=== PATIENT | male | born 1970 | race Caucasian/White ===

== ENCOUNTER 2016-07-05 21:17 | Inpatient (IN) | payer OTHER ==
[~2016-07-05] VITALS: Ht 185.4 cm; Wt 81.8 kg
[2016-07-05 21:39] LABS: EOSINOPHIL (%) 0.5 % (0-5); EOSINOPHIL COUNT 0.1 K/uL (0-0.3); HEMATOCRIT 40.8 % (38.0-50.0); IMMATURE GRANULOCYTE (%) 0.2 % (0.0-0.7); IMMATURE GRANULOCYTE COUNT 0.2 K/uL; LYMPHOCYTE COUNT 3.5 K/uL (1.0-2.8); MCH 31.8 PG (29.0-34.0); MCHC 34.8 G/DL (30.0-36.0); MCV 91.3 FL (86-99); MEAN PLAT.VOLUME 9.3 uM^3 (9.0-12.4); MONOCYTE (%) 7.7 % (3-12); NEUTROPHIL (%) 63.8 % (45-76); NEUTROPHIL COUNT 8.2 K/uL (1.8-6.4); PLATELET COUNT 298 K/uL (156-360); RBC DIS.WIDTH-CV 12.8 % (11.8-14.6); RED BLOOD COUNT 4.47 M/uL (4.00-5.50); WHITE BLOOD COUNT 12.8 K/uL (4.1-10.2)
[2016-07-05 21:50] LABS: CHLORIDE 103 mEq/L (99-109); POTASSIUM 3.5 mEq/L (3.7-5.4); SODIUM 138 mEq/L (136-147)
[2016-07-05 21:51] LABS: MAGNESIUM 2.4 mg/dL (1.3-2.7)
[2016-07-05 21:52] LABS: GLUCOSE 108 mg/dL (70-99)
[2016-07-05 21:54] LABS: ANION GAP 12 MEQ/L (2-14)
[2016-07-05 21:56] LABS: GFR ESTIMATE (CALCULATED) > 59 mL/min/; PTT 24.3 (25-32)
[2016-07-05 21:57] LABS: UREA NITROGEN (BUN) 8 mg/dL (9-23)
[2016-07-05 22:04] LABS: TROP-I INTERPRETATION NEGATIVE; TROPONIN-I < 0.01 ng/mL (0.0-0.30)
[2016-07-05] MEDS ORDERED: CYCLOBENZAPRINE10 MG PO (22:54)
[2016-07-05] MEDS ORDERED: CLOPIDOGREL75 MG PO (22:54)
[2016-07-05] MEDS ORDERED: SERTRALINE HCL100 MG PO (22:54)
[2016-07-05] MEDS ORDERED: ATORVASTATIN CA20 MG PO (22:55)
[2016-07-05] MEDS ORDERED: WELLBUTRIN XL150 MG PO (22:55)
[2016-07-05] MEDS ORDERED: LORAZEPAM0.5 MG PO (22:55)
[2016-07-05 23:06] LABS: ADD MIUA? NO; BILIRUBIN NEGATIVE; BLOOD NEGATIVE; COLOR YELLOW ((YELLOW)); GLUCOSE (STRIP) 100; KETONES NEGATIVE; LEUKOCYTES NEGATIVE; NITRITE NEGATIVE; PROTEIN (STRIP) NEGATIVE; SPECIFIC GRAVITY 1.015 (1.000-1.030); UCUL ADDED? NO; UROBILINOGEN 0.2 MG/DL (0.2-1.0)
[2016-07-05 23:29] LABS: COCAINE NEGATIVE (150 ng/mL); METHAMPHETAMINE NEGATIVE (500 ng/mL); PHENCYCLIDINE NEGATIVE (25 ng/mL); THC CANNABINOIDS NEGATIVE (50 ng/mL)
[2016-07-05 23:30] LABS: AMPHETAMINE NEGATIVE (500 ng/mL); BARBITURATES NEGATIVE (200 ng/mL); BENZODIAZEPINES NEGATIVE (150 ng/mL); INTERNAL CONTROLS VALID? YES; METHADONE NEGATIVE (200 ng/mL); OPIATES (MORPHINE) NEGATIVE (100 ng/mL); OXYCODONE NEGATIVE (100 ng/mL); PROPOXYPHENE NEGATIVE (300 ng/mL); TRICYCLIC ANTIDEPRESSANTS NEGATIVE (300 ng/mL)
[2016-07-06 16:51] VITALS: BP 138/75
[2016-07-06 18:24] VITALS: BP 140/78
[2016-07-06 20:07] VITALS: BP 129/69
[2016-07-07] VITALS: BP 122/67
[2016-07-07 04:00] VITALS: BP 114/65
[2016-07-07 11:29] VITALS: BP 117/72
[2016-07-07 15:42] VITALS: BP 117/67
[2016-07-07 19:36] VITALS: BP 134/60
[2016-07-08] VITALS: BP 110/63
[2016-07-08 04:00] VITALS: BP 112/62
[2016-07-08 07:27] LABS: ANION GAP 7 MEQ/L (2-14); CHLORIDE 105 MEQ/L (99-109); GFR ESTIMATE (CALCULATED) > 59 mL/min/; GLUCOSE 101 mg/dL (70-99); SAMPLE HEMOLYSIS CHECK 0; SAMPLE ICTERIC CHECK 0; SAMPLE LIPEMIA CHECK 0; SODIUM 140 MEQ/L (136-147); UREA NITROGEN (BUN) 15 mg/dL (9-23)
[2016-07-08 07:35] VITALS: BP 115/67
[2016-07-08 07:52] LABS: BASOPHIL COUNT 0.1 K/uL (0-0.1); EOSINOPHIL (%) 3.7 % (0-5); EOSINOPHIL COUNT 0.3 K/uL (0-0.3); IMMATURE GRANULOCYTE (%) 0.3 % (0.0-0.7); LYMPHOCYTE COUNT 3.5 K/uL (1.0-2.8); MCH 30.9 PG (29.0-34.0); MCHC 32.6 G/DL (30.0-36.0); MCV 94.6 FL (86-99); MEAN PLAT.VOLUME 9.7 uM^3 (9.0-12.4); MONOCYTE (%) 9.5 % (3-12); MONOCYTE COUNT 0.8 K/uL (0-0.8); NEUTROPHIL (%) 41.6 % (45-76); NEUTROPHIL COUNT 3.3 K/uL (1.8-6.4); PLATELET COUNT 273 K/uL (156-360); RBC DIS.WIDTH-CV 13.3 % (11.8-14.6); RBC DIS.WIDTH-SD 46.4 % (39-53); RED BLOOD COUNT 4.44 M/uL (4.00-5.50)
[2016-07-08 08:04] LABS: WHITE BLOOD COUNT 7.9 K/uL (4.1-10.2)
[2016-07-08 12:22] VITALS: BP 111/75
[2016-07-08] MEDS ORDERED: KEPPRA500 MG PO (13:17)
== END 2016-07-08 14:24 | disposition home or self-care (01) | DRG 101 ==
LOC: EME 21:17 → EDOF 23:05 → 5SOUTH 23:05 → 3EAST 07-06 16:12 → 5SOUTH 07-06 17:46
PROVIDERS: Emergency Medicine; Family Medicine
DX: R56.9 Unspecified convulsions (principal); I69.351 Hemiplegia and hemiparesis following cerebral infarction affecting right dominant side; F32.9 Major depressive disorder, single episode, unspecified; F41.9 Anxiety disorder, unspecified; G93.89 Other specified disorders of brain; Z88.0 Allergy status to penicillin; E04.1 Nontoxic single thyroid nodule; Z88.6 Allergy status to analgesic agent; E78.5 Hyperlipidemia, unspecified; G89.29 Other chronic pain; M54.9 Dorsalgia, unspecified
CPT/HCPCS: 70450; 70551; 71010; 80048; 81003; 83735; 84484; 85025; 85610; 85730; 93005; 93880; 95819; 99281; 99284; J1650; J1953; J2060; J7030; J7050

== ENCOUNTER 2017-01-28 22:30 | Emergency (ER) | payer OTHER ==
[~2017-01-28] VITALS: Ht 185.4 cm; Wt 73.1 kg
[~2017-01-28 22:30] MED LIST: ATORVASTATIN CA20 MG PO; CLOPIDOGREL75 MG PO; CYCLOBENZAPRINE10 MG PO; KEPPRA500 MG PO; LORAZEPAM0.5 MG PO; SERTRALINE HCL100 MG PO; WELLBUTRIN XL150 MG PO
[2017-01-28 23:23] LABS: HEMATOCRIT 42.3 % (38.0-50.0); MCH 30.5 PG (29.0-34.0); MCHC 33.8 G/DL (30.0-36.0); MCV 90.2 FL (86-99); MEAN PLAT.VOLUME 9.3 uM^3 (9.0-12.4); PLATELET COUNT 236 K/uL (156-360); RBC DIS.WIDTH-SD 39.9 % (39-53); RED BLOOD COUNT 4.69 M/uL (4.00-5.50); WHITE BLOOD COUNT 8.4 K/uL (4.1-10.2)
[2017-01-28 23:36] LABS: CHLORIDE 104 mEq/L (99-109); POTASSIUM 3.6 mEq/L (3.7-5.4); SODIUM 139 mEq/L (136-147)
[2017-01-28 23:38] LABS: GLUCOSE 97 mg/dL (70-99)
[2017-01-28 23:39] LABS: ANION GAP 9 MEQ/L (2-14)
[2017-01-28 23:41] LABS: GFR ESTIMATE (CALCULATED) > 59 mL/min/; SERUM ETHYL ALCOHOL < 10 mg/dL
[2017-01-28 23:42] LABS: UREA NITROGEN (BUN) 9 mg/dL (9-23)
[2017-01-28 23:43] LABS: TROP-I INTERPRETATION NEGATIVE; TROPONIN-I < 0.01 ng/mL (0.0-0.30)
[2017-01-28 23:44] LABS: CREATINE KINASE 83 IU/L (1-294); TOTAL CK 83 IU/L (1-294)
[2017-01-28 23:51] LABS: CK-MB 0.4 ng/mL (0.0-4.9)
[2017-01-29 02:23] LABS: ADD MEDTOX COMMENT Y; AMPHETAMINE NEGATIVE (500 ng/mL); BARBITURATES NEGATIVE (200 ng/mL); BENZODIAZEPINES PRESUMPTIVE POSITIVE (150 ng/mL); COCAINE PRESUMPTIVE POSITIVE (150 ng/mL); INTERNAL CONTROLS VALID? YES; METHADONE NEGATIVE (200 ng/mL); METHAMPHETAMINE PRESUMPTIVE POSITIVE (500 ng/mL); OPIATES (MORPHINE) NEGATIVE (100 ng/mL); OXYCODONE NEGATIVE (100 ng/mL); PHENCYCLIDINE NEGATIVE (25 ng/mL); PROPOXYPHENE NEGATIVE (300 ng/mL); THC CANNABINOIDS NEGATIVE (50 ng/mL); TRICYCLIC ANTIDEPRESSANTS PRESUMPTIVE POSITIVE (300 ng/mL)
[2017-01-29 02:52] LABS: BENZODIAZEPINES QUANT VALUE 0 NG/ML; BENZODIAZEPINES, URINE SCREEN Negative (200 ng/mL)
[2017-01-29 06:47] VITALS: BP 105/75
== END 2017-01-29 06:51 | disposition home or self-care (01) ==
LOC: EME 22:30
PROVIDERS: Emergency Medicine
DX: F15.10 Other stimulant abuse, uncomplicated (principal); F19.10 Other psychoactive substance abuse, uncomplicated; F14.10 Cocaine abuse, uncomplicated; F32.9 Major depressive disorder, single episode, unspecified; R56.9 Unspecified convulsions; F31.9 Bipolar disorder, unspecified; F17.200 Nicotine dependence, unspecified, uncomplicated; Z86.73 Personal history of transient ischemic attack (TIA), and cerebral infarction without residual deficits
CPT/HCPCS: 80048; 82550; 82553; 83880; 84484; 84999; 85027; 90839; 93005; 99281; 99285; G0480; J7030

== ENCOUNTER 2017-03-22 17:54 | Inpatient (IN) | payer OTHER ==
[~2017-03-22] VITALS: Ht 185.4 cm; Wt 76.1 kg
[2017-03-22 18:50] LABS: HEMATOCRIT 35.4 % (38.0-50.0); MCH 31.4 PG (29.0-34.0); MCHC 33.9 G/DL (30.0-36.0); MCV 92.7 FL (86-99); MEAN PLAT.VOLUME 8.6 uM^3 (9.0-12.4); PLATELET COUNT 189 K/uL (156-360); RBC DIS.WIDTH-CV 12.4 % (11.8-14.6); RBC DIS.WIDTH-SD 42.5 % (39-53); RED BLOOD COUNT 3.82 M/uL (4.00-5.50); WHITE BLOOD COUNT 8.4 K/uL (4.1-10.2)
[2017-03-22 18:52] LABS: CARBON DIOXIDE (BICARBONATE) 30.3 MEQ/L (20-31)
[2017-03-22 18:57] LABS: PROTHROMBIN TIME 10.6 SEC (10.2-12.9)
[2017-03-22 18:59] LABS: CHLORIDE 109 mEq/L (99-109); POTASSIUM 3.3 mEq/L (3.7-5.4); SODIUM 141 mEq/L (136-147)
[2017-03-22 19:00] LABS: PTT 27.7 SEC (25-37)
[2017-03-22 19:01] LABS: CHLORIDE 111 mEq/L (99-109); GLUCOSE 81 mg/dL (70-99); POTASSIUM 3.3 mEq/L (3.7-5.4); SODIUM 142 mEq/L (136-147)
[2017-03-22 19:02] LABS: ANION GAP 8 MEQ/L (2-14); GLUCOSE 79 mg/dL (70-99)
[2017-03-22 19:03] LABS: TOTAL BILIRUBIN 0.3 mg/dL (0.0-1.0)
[2017-03-22 19:04] LABS: ALKALINE PHOSPHATASE 58 IU/L (3-129); ANION GAP 6 MEQ/L (2-14)
[2017-03-22 19:05] LABS: GFR ESTIMATE (CALCULATED) > 59 mL/min/
[2017-03-22 19:06] LABS: GFR ESTIMATE (CALCULATED) > 59 mL/min/; SERUM ETHYL ALCOHOL < 10 mg/dL; UREA NITROGEN (BUN) 10 mg/dL (9-23)
[2017-03-22 19:08] LABS: UREA NITROGEN (BUN) 11 mg/dL (9-23)
[2017-03-22 19:09] LABS: SALICYLATE < 5.0 MG/DL (15-30)
[2017-03-22 19:35] LABS: AMPHETAMINE NEGATIVE (500 ng/mL); BARBITURATES NEGATIVE (200 ng/mL); BENZODIAZEPINES PRESUMPTIVE POSITIVE (150 ng/mL); COCAINE PRESUMPTIVE POSITIVE (150 ng/mL); INTERNAL CONTROLS VALID? YES; METHADONE NEGATIVE (200 ng/mL); METHAMPHETAMINE NEGATIVE (500 ng/mL); OPIATES (MORPHINE) PRESUMPTIVE POSITIVE (100 ng/mL); OXYCODONE NEGATIVE (100 ng/mL); PHENCYCLIDINE NEGATIVE (25 ng/mL); PROPOXYPHENE NEGATIVE (300 ng/mL); THC CANNABINOIDS NEGATIVE (50 ng/mL); TRICYCLIC ANTIDEPRESSANTS PRESUMPTIVE POSITIVE (300 ng/mL)
[2017-03-22 19:36] LABS: ADD MEDTOX COMMENT Y
[2017-03-22 20:12] LABS: BENZODIAZEPINES QUANT VALUE 0 NG/ML; BENZODIAZEPINES, URINE SCREEN Negative (200 ng/mL)
[2017-03-22] MEDS ORDERED: TRAZODONE HCL50 MG PO (20:23)
[2017-03-22] MEDS ORDERED: LEVETIRACETAM1000 MG PO (20:24)
[2017-03-22] MEDS ORDERED: AMITRIPTYLINE H25 MG PO (20:26)
[2017-03-22] MEDS ORDERED: LORAZEPAM1 MG PO (20:27)
[2017-03-22 20:31] LABS: BASE EXCESS 1.3 mEq/L (-3 to +3); BICARBONATE 27.2 mEq/L (22-26); CARBOXY HGB 4.2 % (0-5); METHEMOGLOBIN 1.1 % (0-1.5); PCO2 47 mm Hg (35-45); PO2 233 mm Hg (80-100); pH 7.37 (7.35-7.45)
[2017-03-22 20:32] LABS: COMMENTS - BLOOD GASES A+C+; DEVICE VENT; FI02 100 %; MECHANICAL RATE 16 resp/min; MODE AC; SITE RR; TOTAL RESP RATE 16 resp/min
[2017-03-22 20:33] LABS: PEEP 5 CM/H20; TIDAL VOLUME 550 ML
[2017-03-22 23:30] VITALS: BP 175/98
[2017-03-22 23:38] LABS: ADD MIUA? YES; BILIRUBIN NEGATIVE; BLOOD NEGATIVE; COLOR AMBER ((YELLOW)); GLUCOSE (STRIP) 50; KETONES NEGATIVE; LEUKOCYTES NEGATIVE; NITRITE NEGATIVE; PROTEIN (STRIP) NEGATIVE; SPECIFIC GRAVITY 1.023 (1.000-1.030); UROBILINOGEN 0.2 MG/DL (0.2-1.0)
[2017-03-22 23:46] VITALS: BP 175/98
[2017-03-22 23:51] LABS: BACTERIA NONE SEEN /HPF; EPITHELIAL CELLS NONE SEEN /HPF; MUCUS TRACE /LPF; RED BLOOD CELLS 0-5 /HPF (0-5); UCUL ADDED? NO; WHITE BLOOD CELLS 0-5 /HPF (0-5)
[2017-03-23] VITALS (18 sets, daily range): BP systolic 104–166; BP diastolic 63–89
[2017-03-23 00:54] LABS: METH RESISTANT S AUREUS PCR NEGATIVE (NEGATIVE)
[2017-03-23 01:02] LABS: PROBE CHECK PASS; SPECIMEN PROCESSING CONTROL PASS
[2017-03-23 08:44] LABS: BASOPHIL COUNT 0.1 K/uL (0-0.1); EOSINOPHIL (%) 0.9 % (0-5); EOSINOPHIL COUNT 0.1 K/uL (0-0.3); HEMATOCRIT 39.2 % (38.0-50.0); IMMATURE GRANULOCYTE (%) 0.6 % (0.0-0.7); IMMATURE GRANULOCYTE COUNT 0.1 K/uL; INSTRUMENT ABS NEUTROPHIL CT 8.3 K/uL; LYMPHOCYTE COUNT 2.3 K/uL (1.0-2.8); MCH 31.6 PG (29.0-34.0); MCHC 33.9 G/DL (30.0-36.0); MCV 93.1 FL (86-99); MEAN PLAT.VOLUME 9.1 uM^3 (9.0-12.4); MONOCYTE (%) 5.9 % (3-12); MONOCYTE COUNT 0.7 K/uL (0-0.8); NEUTROPHIL (%) 72.2 % (45-76); NEUTROPHIL COUNT 8.3 K/uL (1.8-6.4); PLATELET COUNT 196 K/uL (156-360); RBC DIS.WIDTH-CV 12.6 % (11.8-14.6); RBC DIS.WIDTH-SD 42.6 % (39-53); RED BLOOD COUNT 4.21 M/uL (4.00-5.50); WHITE BLOOD COUNT 11.5 K/uL (4.1-10.2)
[2017-03-23 09:16] LABS: ANION GAP 6 MEQ/L (2-14); CHLORIDE 106 MEQ/L (99-109); GFR ESTIMATE (CALCULATED) > 59 mL/min/; GLUCOSE 98 mg/dL (70-99); MAGNESIUM 1.8 mg/dl (1.3-2.7); SAMPLE HEMOLYSIS CHECK 0; SAMPLE ICTERIC CHECK 0; SAMPLE LIPEMIA CHECK 0; SODIUM 140 MEQ/L (136-147); UREA NITROGEN (BUN) 7 mg/dL (9-23)
[2017-03-23 09:21] LABS: POTASSIUM 4.2 MEQ/L (3.7-5.4)
[2017-03-23] MEDS ORDERED: LEVETIRACETAM1000 MG PO (15:30)
[2017-03-24] VITALS (16 sets, daily range): BP systolic 99–135; BP diastolic 60–78
[2017-03-24 05:34] LABS: EOSINOPHIL (%) 0.8 % (0-5); EOSINOPHIL COUNT 0.1 K/uL (0-0.3); HEMATOCRIT 37.4 % (38.0-50.0); IMMATURE GRANULOCYTE (%) 0.6 % (0.0-0.7); IMMATURE GRANULOCYTE COUNT 0.1 K/uL; INSTRUMENT ABS NEUTROPHIL CT 8.9 K/uL; MCH 31.8 PG (29.0-34.0); MCHC 34.2 G/DL (30.0-36.0); MCV 92.8 FL (86-99); MEAN PLAT.VOLUME 9.4 uM^3 (9.0-12.4); MONOCYTE (%) 6.3 % (3-12); MONOCYTE COUNT 0.8 K/uL (0-0.8); NEUTROPHIL (%) 74.9 % (45-76); NEUTROPHIL COUNT 8.9 K/uL (1.8-6.4); PLATELET COUNT 203 K/uL (156-360); RBC DIS.WIDTH-CV 12.7 % (11.8-14.6); RBC DIS.WIDTH-SD 43.7 % (39-53); RED BLOOD COUNT 4.03 M/uL (4.00-5.50); WHITE BLOOD COUNT 11.8 K/uL (4.1-10.2)
[2017-03-24 05:58] LABS: ALKALINE PHOSPHATASE 68 IU/L (3-129); ANION GAP 8 MEQ/L (2-14); CHLORIDE 105 MEQ/L (99-109); GFR ESTIMATE (CALCULATED) > 59 mL/min/; GLUCOSE 115 mg/dL (70-99); MAGNESIUM 1.9 mg/dl (1.3-2.7); POTASSIUM 4.2 MEQ/L (3.7-5.4); SAMPLE HEMOLYSIS CHECK 0; SAMPLE ICTERIC CHECK 0; SAMPLE LIPEMIA CHECK 0; SODIUM 139 MEQ/L (136-147); UREA NITROGEN (BUN) 6 mg/dL (9-23)
[2017-03-24] MEDS ORDERED: FLUOXETINE HCL40 MG PO (07:29)
[2017-03-24] MEDS ORDERED: ACETAMINOPHEN-1 EAC1 PO (07:29)
[2017-03-24] MEDS ORDERED: LORAZEPAM1 MG PO (07:33)
[2017-03-24] MEDS ORDERED: AMITRIPTYLINE H25 MG PO (07:33)
[2017-03-24] MEDS ORDERED: ATORVASTATIN CA20 MG PO (07:34)
[2017-03-24] MEDS ORDERED: CLOPIDOGREL75 MG PO (07:34)
[2017-03-25 08:33] VITALS: BP 117/68
[2017-03-25 10:58] LABS: BASOPHIL COUNT 0.1 K/uL (0-0.1); EOSINOPHIL COUNT 0.2 K/uL (0-0.3); HEMATOCRIT 38.6 % (38.0-50.0); IMMATURE GRANULOCYTE (%) 0.3 % (0.0-0.7); INSTRUMENT ABS NEUTROPHIL CT 7.6 K/uL; LYMPHOCYTE COUNT 2.2 K/uL (1.0-2.8); MCH 31.3 PG (29.0-34.0); MCHC 33.9 G/DL (30.0-36.0); MCV 92.3 FL (86-99); MEAN PLAT.VOLUME 8.9 uM^3 (9.0-12.4); MONOCYTE (%) 7.1 % (3-12); MONOCYTE COUNT 0.8 K/uL (0-0.8); NEUTROPHIL (%) 70.2 % (45-76); NEUTROPHIL COUNT 7.6 K/uL (1.8-6.4); PLATELET COUNT 208 K/uL (156-360); RBC DIS.WIDTH-CV 12.5 % (11.8-14.6); RBC DIS.WIDTH-SD 42.7 % (39-53); RED BLOOD COUNT 4.18 M/uL (4.00-5.50); WHITE BLOOD COUNT 10.8 K/uL (4.1-10.2)
== END 2017-03-25 15:23 | disposition home or self-care (01) | DRG 917 ==
LOC: EME 17:54 → 4WEST 19:39 → EDOF 19:39 → ENRESERV 19:43 → 4WEST 23:15 → ENRESERV 03-24 12:53 → 3EAST 03-24 17:26
PROVIDERS: Emergency Medicine; Hospitalist; Internal Medicine Critical Care Medicine; Specialist
PROC: 5A1945Z Respiratory Ventilation, 24-96 Consecutive Hours (ICD-10-PCS; principal; 2017-03-22)
PROC: 0BH17EZ Insertion of Endotracheal Airway into Trachea, Via Natural or Artificial Opening (ICD-10-PCS; 2017-03-22)
DX: T42.4X2A Poisoning by benzodiazepines, intentional self-harm, initial encounter (principal); J96.00 Acute respiratory failure, unspecified whether with hypoxia or hypercapnia; F33.2 Major depressive disorder, recurrent severe without psychotic features; F11.20 Opioid dependence, uncomplicated; F17.210 Nicotine dependence, cigarettes, uncomplicated; F41.9 Anxiety disorder, unspecified; F43.25 Adjustment disorder with mixed disturbance of emotions and conduct; F14.10 Cocaine abuse, uncomplicated; Z86.73 Personal history of transient ischemic attack (TIA), and cerebral infarction without residual deficits; G40.909 Epilepsy, unspecified, not intractable, without status epilepticus; Z88.0 Allergy status to penicillin; Z88.5 Allergy status to narcotic agent
CPT/HCPCS: 36600; 71010; 80048; 80053; 81003; 82803; 83605; 83735; 84100; 84132; 84999; 85025; 85027; 85610; 85730; 87070; 87205; 87641; 93005; 94002; 94003; 99281; 99285; G0480; J1650; J2704; J3411; J3475; J7030; S0028

== ENCOUNTER 2017-10-29 16:21 | Emergency (ER) | payer OTHER ==
[~2017-10-29] VITALS: Ht 185.4 cm; Wt 79.1 kg
[~2017-10-29 16:21] MED LIST changes: +ACETAMINOPHEN-1 EAC1 PO; +AMITRIPTYLINE H25 MG PO; +FLUOXETINE HCL40 MG PO; +LEVETIRACETAM1000 MG PO; +LORAZEPAM1 MG PO; +TRAZODONE HCL50 MG PO
[2017-10-29 17:36] LABS: BASOPHIL (%) 0.7 % (0-1); BASOPHIL COUNT 0.1 K/uL (0-0.1); EOSINOPHIL (%) 3.3 % (0-5); EOSINOPHIL COUNT 0.3 K/uL (0-0.3); HEMATOCRIT 43.1 % (38.0-50.0); HEMOGLOBIN 14.4 G/DL (12.5-16.6); IMMATURE GRANULOCYTE (%) 0.6 % (0.0-0.7); LYMPHOCYTE (%) 37.8 % (15-42); LYMPHOCYTE COUNT 3.4 K/uL (1.0-2.8); MCH 30.4 PG (29.0-34.0); MCHC 33.4 G/DL (30.0-36.0); MCV 90.9 FL (86-99); MONOCYTE (%) 7.7 % (3-12); MONOCYTE COUNT 0.7 K/uL (0-0.8); NEUTROPHIL (%) 49.9 % (45-76); NEUTROPHIL COUNT 4.5 K/uL (1.8-6.4); PLATELET COUNT 314 K/uL (156-360); RBC DIS.WIDTH-CV 12.7 % (11.8-14.6); RBC DIS.WIDTH-SD 41.6 % (39-53); RED BLOOD COUNT 4.74 M/uL (4.00-5.50)
[2017-10-29 17:47] LABS: ALBUMIN 4.3 g/dL (3.2-4.8); CHLORIDE 106 mEq/L (99-109); POTASSIUM 3.7 mEq/L (3.7-5.4); SODIUM 143 mEq/L (136-147)
[2017-10-29 17:48] LABS: MAGNESIUM 2.5 mg/dL (1.3-2.7)
[2017-10-29 17:49] LABS: GLUCOSE 88 mg/dL (70-99)
[2017-10-29 17:51] LABS: TOTAL BILIRUBIN 0.4 mg/dL (0.0-1.0)
[2017-10-29 17:53] LABS: ALKALINE PHOSPHATASE 82 IU/L (3-129); CREATININE 0.9 mg/dL (0.6-1.3); GFR ESTIMATE (CALCULATED) > 59 mL/min/ (58.99-99999)
[2017-10-29 17:54] LABS: UREA NITROGEN (BUN) 9 mg/dL (9-23)
[2017-10-29 17:55] LABS: AST (GOT) 14 IU/L (2-34)
[2017-10-29 17:56] LABS: ALT (GPT) 11 IU/L (3-49); TROP-I INTERPRETATION NEGATIVE; TROPONIN-I < 0.01 ng/mL (0.0-0.30)
[2017-10-29 21:27] LABS: TROP-I INTERPRETATION NEGATIVE; TROPONIN-I < 0.01 ng/mL (0.0-0.30)
[2017-10-29 22:09] VITALS: BP 123/76
== END 2017-10-29 22:34 | disposition home or self-care (01) ==
LOC: EME 16:21
PROVIDERS: Emergency Medicine; Physician Assistant Medical
DX: F14.10 Cocaine abuse, uncomplicated (principal); E86.0 Dehydration; R56.9 Unspecified convulsions; F31.9 Bipolar disorder, unspecified; F41.9 Anxiety disorder, unspecified; F17.200 Nicotine dependence, unspecified, uncomplicated; Z79.02 Long term (current) use of antithrombotics/antiplatelets; Z86.73 Personal history of transient ischemic attack (TIA), and cerebral infarction without residual deficits; Z88.0 Allergy status to penicillin; Z88.5 Allergy status to narcotic agent; Z88.8 Allergy status to other drugs, medicaments and biological substances
CPT/HCPCS: 70450; 80053; 83735; 84484; 85025; 93005; 99281; 99285; J1200; J1885; J2765; J7040

== ENCOUNTER 2017-11-06 20:09 | Observation (INO) | payer OTHER ==
[~2017-11-06] VITALS: Ht 185.4 cm; Wt 83.7 kg
[2017-11-06 20:39] LABS: HEMOGLOBIN 13.2 G/DL (12.5-16.6); MCH 30.8 PG (29.0-34.0); MCHC 33.8 G/DL (30.0-36.0); MCV 91.1 FL (86-99); PLATELET COUNT 306 K/uL (156-360); RBC DIS.WIDTH-CV 12.9 % (11.8-14.6); RBC DIS.WIDTH-SD 42.8 % (39-53); RED BLOOD COUNT 4.28 M/uL (4.00-5.50); WHITE BLOOD COUNT 8.4 K/uL (4.1-10.2)
[2017-11-06 20:48] LABS: CHLORIDE 108 mEq/L (99-109); POTASSIUM 3.9 mEq/L (3.7-5.4); SODIUM 143 mEq/L (136-147)
[2017-11-06 20:49] LABS: GLUCOSE 117 mg/dL (70-99)
[2017-11-06 20:53] LABS: CREATININE 0.9 mg/dL (0.6-1.3); GFR ESTIMATE (CALCULATED) > 59 mL/min/ (58.99-99999)
[2017-11-06 20:54] LABS: UREA NITROGEN (BUN) 14 mg/dL (9-23)
[2017-11-06 21:01] LABS: TROP-I INTERPRETATION NEGATIVE; TROPONIN-I < 0.01 ng/mL (0.0-0.30)
[2017-11-06] MEDS ORDERED: FLUOXETINE HCL10 MG PO (22:39)
[2017-11-06] MEDS ORDERED: DESYREL100 MG PO (22:40)
[2017-11-06] MEDS ORDERED: FLONASE16 G1 BOTH NARES (22:40)
[2017-11-06] MEDS ORDERED: ATIVAN1 MG PO (22:41)
[2017-11-06 23:55] VITALS: BP 135/65
[2017-11-07 00:26] LABS: APPEARANCE CLEAR ((CLEAR)); BILIRUBIN NEGATIVE; BLOOD NEGATIVE; COLOR YELLOW ((YELLOW)); GLUCOSE (STRIP) NEGATIVE; KETONES NEGATIVE; LEUKOCYTES NEGATIVE; NITRITE NEGATIVE; PROTEIN (STRIP) NEGATIVE; SPECIFIC GRAVITY 1.048 (1.000-1.030); UCUL ADDED? NO; UROBILINOGEN 0.2 MG/DL (0.2-1.0)
[2017-11-07 01:15] LABS: BENZODIAZEPINES, URINE SCREEN Negative (200 ng/mL)
[2017-11-07 03:32] VITALS: BP 128/66
[2017-11-07 07:47] VITALS: BP 119/70
[2017-11-07 10:46] LABS: TROP-I INTERPRETATION NEGATIVE; TROPONIN-I < 0.01 ng/mL (0.0-0.30)
== END 2017-11-07 11:32 | disposition home or self-care (01) ==
LOC: EME 20:09 → EDOF 22:54 → ENRESERV 23:02 → 4SOUTH 23:46
PROVIDERS: Emergency Medicine; Family Medicine
DX: R07.89 Other chest pain (principal); F17.210 Nicotine dependence, cigarettes, uncomplicated; F14.90 Cocaine use, unspecified, uncomplicated; Z86.73 Personal history of transient ischemic attack (TIA), and cerebral infarction without residual deficits; E78.5 Hyperlipidemia, unspecified; G40.909 Epilepsy, unspecified, not intractable, without status epilepticus; G89.29 Other chronic pain; M54.9 Dorsalgia, unspecified; F41.9 Anxiety disorder, unspecified; F32.9 Major depressive disorder, single episode, unspecified; Z88.0 Allergy status to penicillin; Z88.5 Allergy status to narcotic agent; Z82.5 Family history of asthma and other chronic lower respiratory diseases
CPT/HCPCS: 71046; 71275; 80048; 80306 90; 81003; 84484; 85027; 93005; 99281; 99285; G0378; J7030